=== PATIENT | female | born 1990 | race Caucasian/White ===

== ENCOUNTER 2022-11-24 05:15 | Day surgery (SDC) | payer OTHER ==
[~2022-11-24] VITALS: Ht 165.1 cm; Wt 85.3 kg
[~2022-11-24 05:15] MED LIST: AMOX1TAB5 PO; INTEGRA F CAPS1 EACH PO; PROTONI PO
[2022-11-24] MEDS ORDERED: IBU600 MG PO (13:56)
== END 2022-11-24 17:20 | disposition home or self-care (01) ==
LOC: CIR.AMB 05:15
PROVIDERS: ATTEND Obstetrics & Gynecology
DX: N72 Inflammatory disease of cervix uteri (principal); N84.0 Polyp of corpus uteri; Z20.822 Contact with and (suspected) exposure to COVID-19; E03.9 Hypothyroidism, unspecified; N93.9 Abnormal uterine and vaginal bleeding, unspecified

== ENCOUNTER 2022-12-29 05:34 | Day surgery (SDC) | payer OTHER ==
[~2022-12-29] VITALS: Ht 167.6 cm; Wt 86.2 kg
[~2022-12-29 05:34] MED LIST changes: +IBU600 MG PO
== END 2022-12-29 14:40 | disposition home or self-care (01) ==
LOC: CIR.AMB 05:34
PROVIDERS: ATTEND Obstetrics & Gynecology
DX: N84.0 Polyp of corpus uteri (principal); N95.0 Postmenopausal bleeding; I10 Essential (primary) hypertension; E03.9 Hypothyroidism, unspecified; Z20.822 Contact with and (suspected) exposure to COVID-19; Z88.2 Allergy status to sulfonamides